=== PATIENT | female | born 1955 | race Caucasian/White ===

== ENCOUNTER 2024-02-22 02:54 | Emergency (ER) | payer MEDICARE, OTHER ==
[~2024-02-22] VITALS: Ht 157.5 cm; Wt 107.5 kg
[2024-02-22] MEDS ORDERED: ZOFRAN ONE (03:29)
[2024-02-22] MEDS ORDERED: MYLANTA ONE ×2 (03:29→03:30)
[2024-02-22] MEDS ORDERED: LIDOCAINE HCL VISCOUS ONE (03:29)
[2024-02-22] MEDS: MYLANTA PO STA (03:45)
[2024-02-22] MEDS: LIDOCAINE HCL VISCOUS MM STA (03:45)
[2024-02-22] MEDS: ZOFRAN ODT SL STA (03:45)
[2024-02-22 03:50] VITALS: BP 133/59; PULSE 75; RESP 18; TEMP 98.1; O2SAT 98
[2024-02-22 03:53] LABS: BASOPHIL # 0.1 10^3/uL (0.0-0.1); BASOPHIL % 0.5 % (0.0-0.2); EOSINOPHIL # 0.3 10^3/uL (0.0-0.2); EOSINOPHIL % 2.1 % (0.0-5.0); HEMATOCRIT(ML) 36.6 % (36.0-46.0); HEMOGLOBIN 12.3 g/dL (12.0-15.0); LYMPHOCYTES # 4.13 10^3/uL1 (1.0-4.8); MEAN CORP HGB 30.8 pg (26-34); MEAN CORP HGB CONCENTRATION 33.6 g/dL (33-36.5); MEAN CORP VOLUME 91.5 fL (78-100); MONOCYTES # 1.3 10^3/uL (0.3-0.8); MONOCYTES % 11.1 % (5.0-12.0); PLATELET COUNT 394 10^3/uL (150-400); RED CELL DISTRIBUTION WIDTH 15.6 % (11.5-14.5); WHITE BLOOD CELL 11.8 10^3/uL (4.5-11.0)
[2024-02-22 03:54] LABS: +ADD MANUAL DIFF(NO CHRG) NO
[2024-02-22 04:11] LABS: ALBUMIN(ML) 2.7 g/dL (3.4-5.0); ALBUMIN/GLOBULIN RATIO 0.675; ANION GAP 12.5; BUN/CREATININE RATIO 21.51 (10.0-20.0); CALCIUM 9.1 mg/dL (8.4-10.5); CARBON DIOXIDE 26.4 mmol/L (20.0-32); CREATININE SERUM 0.79 mg/dL (0.59-1.40); EST GFR, NON-AA 72.4 (>/=60); POTASSIUM 3.9 mmol/L (3.6-5.2)
[2024-02-22 04:25] VITALS: BP 129/68; PULSE 69; RESP 18; TEMP 98.1; O2SAT 98
[2024-02-22] MEDS ORDERED: FAMO-75 PO (05:13)
[2024-02-22] MEDS ORDERED: SUCR1TAB34 PO (05:13)
[2024-02-22 05:14] VITALS: BP 114/59; PULSE 63; RESP 18; TEMP 98.1; O2SAT 98
== END 2024-02-22 05:20 | disposition home or self-care (01) ==
LOC: EDBD 02:54 → ER 02:54
DX: R10.12 Left upper quadrant pain (principal); E11.9 Type 2 diabetes mellitus without complications; I10 Essential (primary) hypertension; K21.9 Gastro-esophageal reflux disease without esophagitis; Z90.49 Acquired absence of other specified parts of digestive tract; Z90.89 Acquired absence of other organs
CPT/HCPCS: 99283; 80053; 85025; 36415; 82150; 83690; J3490; J2405

== ENCOUNTER → 2024-02-26 | Outpatient (CLI) | payer MEDICARE, OTHER ==
[~2024-02-26] MED LIST: FAMO-75 PO; SUCR1TAB34 PO
== END | disposition home or self-care (01) ==
LOC: NPLAB 11:48
PROVIDERS: ATTEND Family Medicine
DX: Z79.899 Other long term (current) drug therapy (principal)
CPT/HCPCS: 36415; 84132